=== PATIENT | female | born 1990 | race Caucasian/White ===

== ENCOUNTER → 2017-01-05 | Outpatient (CLI) | payer BC ==
[~2017-01-05] VITALS: Ht 172.7 cm; Wt 86.2 kg
[~2017-01-05] MED LIST: IOHEXOL 300 MG/ML 50 ML (OMNIPAQUE 300) VIAL IV ONE
[2017-01-05 12:00] VITALS: BP 121/79
[2017-01-05 13:00] VITALS: BP 118/68
--- NOTE | 2017-01-05 16:30 | Diagnostic Imaging Report ---
Exam: Hysterosalpingogram TECHNIQUE: Dr. Irving performed introduction of a catheter with a balloon into the uterine cavity. Contrast was injected into the uterine cavity with imaging over the pelvis performed with fluoroscopic visualization and images saved. INDICATION: Infertility. FLUOROSCOPY TIME: 28 seconds FINDINGS: There is normal contrast filling of the uterine cavity. The tubes are patent with free spillage into the peritoneal cavity bilaterally. IMPRESSION: Patent fallopian tubes. Dictated by: Dictated on workstation # [id number]
--- NOTE | 2017-01-05 17:53 | OPERATIVE REPORT ---
DATE OF SERVICE: 01/05/2017 PREPROCEDURE DIAGNOSIS: Dysmenorrhea. POSTPROCEDURE DIAGNOSIS: Dysmenorrhea. OPERATIVE PROCEDURE: Hystersalpingogram. OPERATIVE DESCRIPTION: With the patient in the radiology suite and a negative test performed prior to initiating the procedure, the patient was placed supine on the radiology table. Speculum was replaced in the vagina exposing the cervix. The cervix was swabbed with Betadine and then an HSG catheter was placed without difficulty. The balloon was filled with 1.5 mL of air. The patient tolerated this. The catheter had been flushed with radiopaque contrast medium. The patient was now placed supine and the radiologist was summoned. With the radiologist performing continuous fluoroscopy, the HSG was performed instilling the contrast media showing prompt and easy spill on the patient's right and a little bit delayed spill, but still pretty easy spill on the left. The balloon at this point was desufflated and the uterine cavity filled with contrast material as the balloon was withdrawn. There was a normal-appearing triangular endometrial cavity demonstrated. The patient tolerated the procedure well. She remained in the radiology suite for an additional 15 minutes observing for reaction to the contrast material. At that point with no adverse sequelae, the patient was discharged home with follow up in clinic. Job ID: [id number] DocumentID: [id number] Dictated Date: 01/05/2017 13:12:20 Senior Director [employer] Date: 01/05/2017 17:53:02 Dictated By: LESVIA GHOTRA MD
== END ==
LOC: RAD 11:31
PROVIDERS: ATTEND Obstetrics & Gynecology
DX: N97.1 Female infertility of tubal origin (principal)
CPT/HCPCS: 58340; 74740

== ENCOUNTER → 2017-12-16 | Outpatient (CLI) | payer BC | LOC: LABNPT 11:39 | PROVIDERS: ATTEND Obstetrics & Gynecology | DX: O14.03 Mild to moderate pre-eclampsia, third trimester (principal) | CPT/HCPCS: 82570; 84156 ==

== ENCOUNTER → 2017-12-30 | Outpatient (CLI) | payer BC ==
[~2017-12-30] MED LIST changes: +DOCU100C37 PO; +IBUP-1780 PO; -IOHEXOL 300 MG/ML 50 ML (OMNIPAQUE 300) VIAL IV ONE; +OXYC1TAB12 PO; +PREN-37 PO
== END ==
LOC: LABNPT 12:00
PROVIDERS: ATTEND Obstetrics & Gynecology
DX: O14.03 Mild to moderate pre-eclampsia, third trimester (principal)
CPT/HCPCS: 82570; 84156

== ENCOUNTER 2018-01-04 11:29 | Inpatient (IN) | payer BC ==
[2018-01-04] VITALS (44 sets, daily range): BP systolic 121–178; BP diastolic 59–106
[~2018-01-04] VITALS: Ht 167.6 cm; Wt 98.1 kg
--- OUTSIDE RECORDS SUMMARY | 2018-01-04 11:33 | XMS REPORT ---
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 328083538 ALLERGIES No Known Allergies ENCOUNTERS Encounter Location Date Diagnosis [facility] [address] [place], [place] [id number] [place] [id number] 15 Jan, 2017 URI with cough and congestion J06.9 [facility] [address] [place], [place] [id number] [place] [phone] 26 Oct, 2016 Encounter for immunization Z23 [facility] [address] [place] [id number] [place] [phone] 06 Oct, 2016 URI with cough and congestion J06.9 [facility] [address] [place] [id number] [place] [id number] 16 Sep, 2016 Visit for TB skin test Z11.1 [facility] [address] [place], [place] [id number] [place] [phone] 14 Sep, 2016 TB skin/subcutaneous A18.4 and Encounter for tuberculin skin test Z11.1 IMMUNIZATIONS No Known Immunizations SOCIAL HISTORY Never Assessed REASON FOR VISIT Cough and nasal drainage/headache/earache left ear x2 days-KMorgan, AUTOMATION OPERATOR PLAN OF CARE Activity Details Follow Up prn Reason: VITAL SIGNS Weight 208.9 lbs 2017-01-23 Temperature 98.0 degrees Fahrenheit 2017-01-23 Heart Rate 99 bpm 2017-01-23 Respiratory Rate 18 2017-01-23 Blood pressure systolic 118 mmHg 2017-01-23 Blood pressure diastolic 82 mmHg 2017-01-23 MEDICATIONS Medication Instructions Dosage Frequency Start Date End Date Duration Status Fluticasone Propionate 50 MCG/ACT Nasally Once a day 1 spray in each nostril 24h Oct, 30 day(s) Not-Taking PredniSONE 20 MG Orally Once a day Take 3 tablets on days 1-2, 2 tablets on days 3-4,1 tablet on day 5 24h Jan, Jan, 5 day(s) Active Levothyroxine Sodium 25 MCG Orally Once a day 1 tablet on an empty stomach in the morning 24h Active RESULTS No Results PROCEDURES No Known procedures INSTRUCTIONS MEDICATIONS ADMINISTERED No Known Medications MEDICAL (GENERAL) HISTORY Type Description Date Medical History Hypothroidism
--- OUTSIDE RECORDS SUMMARY | 2018-01-04 11:33 | XMS REPORT ---
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 [id number] ALLERGIES No Known Allergies ENCOUNTERS Encounter Location Date Diagnosis [facility] [address] [place], [place] [id number] [phone] 15 Jan, 2017 URI with cough and congestion J06.9 [facility] [address] [place], [place] [id number] [place] [phone] 26 Oct, 2016 Encounter for immunization Z23 [facility] [address] [place] [id number] [place] [phone] 06 Oct, 2016 URI with cough and congestion J06.9 [facility] [address] [place] [id number] [place] [phone] 16 Sep, 2016 Visit for TB skin test Z11.1 [facility] [address] [place] [id number] [place] [phone] 14 Sep, 2016 TB skin/subcutaneous A18.4 and Encounter for tuberculin skin test Z11.1 IMMUNIZATIONS No Known Immunizations SOCIAL HISTORY Never Assessed REASON FOR VISIT Sore throat since Thursday, deep chest cough and congestion/Denies fever./Joe Gilliam R.N. PLAN OF CARE Activity Details Follow Up prn Reason: VITAL SIGNS Temperature 99.0 degrees Fahrenheit 2016-10-15 Heart Rate 68 bpm 2016-10-15 Respiratory Rate 18 2016-10-15 Oximetry 98 % 2016-10-15 Blood pressure systolic 132 mmHg 2016-10-15 Blood pressure diastolic 84 mmHg 2016-10-15 MEDICATIONS Medication Instructions Dosage Frequency Start Date End Date Duration Status Fluticasone Propionate 50 MCG/ACT Nasally Once a day 1 spray in each nostril 24h Oct, 30 day(s) Active Levothyroxine Sodium 25 MCG Orally Once a day 1 tablet on an empty stomach in the morning 24h Active RESULTS No Results PROCEDURES Procedure Date Ordered Result Body Site MEASURE BLOOD OXYGEN LEVEL Oct 15, 2016 INSTRUCTIONS MEDICATIONS ADMINISTERED No Known Medications MEDICAL (GENERAL) HISTORY Type Description Date Medical History Hypothroidism
--- OUTSIDE RECORDS SUMMARY | 2018-01-04 11:34 | XMS REPORT ---
Author Nicole Yang [facility] Address [address] [place], [place] [id number] Care Team Providers Care Machining Manager Name Role Phone Nicole Ocampo PCP Unavailable Allergies and Adverse Reactions Name Reaction Notes NO KNOWN DRUG ALLERGIES Plan of Treatment Planned Activity Comments Planned Date Planned Time Plan/Goal TISSUE EXAM FOR FUNGI 08/07/2014 12:00 AM SMEAR WET MOUNT SALINE/INK 08/07/2014 12:00 AM Medications Active Name Start Date Estimated Completion Date SIG Comments omeprazole 40 mg oral capsule,delayed release(DR/EC) 09/21/2013 take 1 capsule daily lisinopril 10 mg oral tablet 09/07/2014 take 1 tablet (10 mg) by oral route once daily naproxen 500 mg oral tablet 09/11/2015 take 1 tablet (500 mg) by oral route 2 times per day with food omeprazole 20 mg oral capsule,delayed release(DR/EC) 09/11/2015 10/11/2015 take 1 capsule (20 mg) by oral route once daily before a meal for 30 days Name Start Date Expiration Date SIG Comments triamcinolone acetonide 0.1 % topical ointment 10/19/2013 10/31/2013 apply a thin layer to the affected area(s) by topical route 2 times per day for 14 days lidocaine 5 % topical ointment 10/19/2013 10/31/2013 apply to affected area by external route As needed for 14 days omeprazole 40 mg oral capsule,delayed release(DR/EC) 06/14/2014 09/12/2014 take 1 capsule by oral route 2 times a day for 30 days Contrave 8-90 mg oral tablet extended release 09/07/2014 10/07/2014 take 2 tablets by oral route 2 times per day in the morning and evening for 30 days prednisone 20 mg oral tablet 06/11/2015 06/17/2015 Take 3 tabs x 2 days; then Take 2 tabs x 2 days; then Take 1 tab x 2 days. Discontinued Name Start Date Discontinued Date SIG Comments TriNessa (28) 0.18/0.215/0.25 mg-35 mcg (28) oral tablet 03/02/2013 09/21/2013 TAKE 1 TABLET BY MOUTH DAILY Depo-Provera 150 mg/mL intramuscular syringe 06/13/2014 inject 1 milliliter (150 mg) by intramuscular route every 3 months Percocet 5-325 mg oral tablet 01/25/2014 02/13/2014 take 1 tablet by oral route every 4-6 hours as needed ibuprofen 800 mg oral tablet 01/25/2014 03/22/2014 take 1 tablet by oral route every 8 hours as needed for 30 days promethazine-codeine 6.25-10 mg/5 mL oral syrup 02/27/2014 03/22/2014 take 5 milliliters by oral route every 4-6 hours as needed, not to exceed 30 mL in 24 hours Sprintec (28) 0.25-35 mg-mcg oral tablet 03/22/2014 04/11/2015 take 1 tablet by oral route once daily for 28 days lisinopril 10 mg oral tablet 10/13/2014 04/11/2015 TAKE 1 TABLET BY MOUTH DAILY labetalol 100 mg oral tablet 04/11/2015 09/11/2015 take 1 tablet (100 mg) by oral route 2 times per day Problem List Description Status Onset NO KNOWN MEDICAL PROBLEMS Active Dyspareunia Active 10/17/2013 Hymen abnormality Active 10/17/2013 Vital Signs Date Time BP-Sys(mm[Hg] BP-Roberta(mm[Hg]) HR(bpm) RR(rpm) Temp WT HT HC BMI BSA BMI Percentile O2 Sat(%) 09/11/2015 11:50:00 AM 126 mmHg 72 mmHg 82 bpm 18 rpm 97.8 F 213.375 lbs 66 in 34.44 kg/m2 2.12 m2 99 % 06/11/2015 10:53:00 AM 140 mmHg 80 mmHg 78 bpm 16 rpm 96.5 F 212 lbs 66 in 34.2173 kg/m 2.1161 m 98 % 04/11/2015 9:30:00 AM 138 mmHg 72 mmHg 85 bpm 18 rpm 97.5 F 191.125 lbs 66 in 30.85 kg/m2 2.01 m2 98 % 09/07/2014 9:19:00 AM 149 mmHg 96 mmHg 79 bpm 18 rpm 98.6 F 205.25 lbs 66 in 33.1279 kg/m 2.0822 m 100 % 08/07/2014 3:19:00 PM 158 mmHg 90 mmHg 80 bpm 16 rpm 99.2 F 206.125 lbs 66 in 33.27 kg/m2 2.09 m2 99 % 06/13/2014 3:23:00 PM 124 mmHg 74 mmHg 90 bpm 18 rpm 98.3 F 204 lbs 66 in 32.9261 kg/m 2.0758 m 98 % 05/05/2014 3:54:00 PM 130 mmHg 80 mmHg 89 bpm 16 rpm 98 F 202.137 lbs 66 in 32.63 kg/m2 2.07 m2 98 % 03/22/2014 2:14:00 PM 157 mmHg 95 mmHg 101 bpm 98.1 F 199.5 lbs 68 in 30.3336 kg/m 2.0837 m 02/27/2014 2:45:00 PM 110 mmHg 68 mmHg 86 bpm 18 rpm 98.2 F 198 lbs 66 in 31.96 kg/m2 2.05 m2 99 % 02/13/2014 9:49:00 AM 146 mmHg 94 mmHg 96 bpm 98.4 F 01/25/2014 2:19:00 PM 156 mmHg 97 mmHg 81 bpm 97.8 F 198 lbs 66 in 31.96 kg/m2 2.05 m2 12/28/2013 3:54:00 PM 134 mmHg 82 mmHg 64 bpm 98 F 192 lbs 66 in 30.9893 kg/m 2.0138 m 10/17/2013 1:56:00 PM 156 mmHg 96 mmHg 83 bpm 98.4 F 187.25 lbs 66 in 30.22 kg/m2 1.99 m2 09/21/2013 8:51:00 AM 124 mmHg 66 mmHg 86 bpm 18 rpm 98.1 F 187.125 lbs 66 in 30.2025 kg/m 1.9881 m 99 % 03/02/2013 2:43:00 PM 124 mmHg 68 mmHg 88 bpm 18 rpm 96.9 F 192 lbs 66 in 30.99 kg/m2 2.01 m2 98 % 03/23/2012 10:41:00 AM 132 mmHg 77 mmHg 64 bpm 20 rpm 97.1 F 182 lbs 66 in 29.3753 kg/m 1.9607 m 100 % 02/13/2012 10:05:00 AM 146 mmHg 80 mmHg 77 bpm 16 rpm 97.1 F 179 lbs 99 % 02/12/2011 9:45:00 AM 130 mmHg 80 mmHg 100 bpm 16 rpm 97.4 F 174.125 lbs 99 % 01/31/2009 2:01:00 PM 128 mmHg 80 mmHg 80 bpm 16 rpm 98.6 F 144 lbs 66 in 23.24 kg/m2 1.74 m2 0 % Social History Name Description Comments Alcohol Current some day Tobacco Never smoker Single College attendee Denies illicit substance abuse Active but no formal exercise History of Procedures Date Ordered Description Order Status 04/11/2015 12:00 AM SPECIMEN HANDLING OFFICE-LAB Reviewed 04/11/2015 12:00 AM CYTOPATH C/V THIN LAYER Returned 04/11/2015 12:00 AM FUNGUS ISOLATION CULTURE Returned 02/12/2011 12:00 AM CYTOPATH C/V MANUAL Returned 02/13/2012 12:00 AM CYTOPATH C/V MANUAL Returned 03/02/2013 12:00 AM CYTOPATH C/V MANUAL Returned 03/02/2013 12:00 AM THER/PROPH/DIAG INJ SC/IM Reviewed 03/02/2013 12:00 AM Decadron, Per 1 Mg [facility]# [address]-97 Reviewed 03/02/2013 12:00 AM Depo-Medrol, Per 80 Mg [facility]#6311-6936-88 Reviewed 03/23/2013 12:00 AM THER/PROPH/DIAG INJ SC/IM Reviewed 03/23/2013 12:00 AM Depo-Provera 150 mg Reviewed 03/23/2013 12:00 AM URINE TEST Reviewed 06/08/2013 12:00 AM THER/PROPH/DIAG INJ SC/IM Reviewed 06/08/2013 12:00 AM Depo-Provera 150 mg Reviewed 01/31/2009 12:00 AM CHLAMYDIA CULTURE Reviewed 01/31/2009 12:00 AM SMEAR WET MOUNT SALINE/INK Reviewed 01/31/2009 12:00 AM N. GONORRHOEAE ASSAY W/OPTIC Reviewed 01/31/2009 12:00 AM URINALYSIS NONAUTO W/SCOPE Reviewed 08/24/2013 12:00 AM THER/PROPH/DIAG INJ SC/IM Reviewed 08/24/2013 12:00 AM Depo Provera Injection, 150 mg Reviewed 09/21/2013 9:19 AM URINALYSIS AUTO W/O SCOPE Reviewed 09/21/2013 12:00 AM URINE BACTERIA CULTURE Returned 11/09/2013 12:00 AM THER/PROPH/DIAG INJ SC/IM Reviewed 11/09/2013 12:00 AM Depo Provera Injection, 150 mg Reviewed 01/25/2014 12:00 AM COMPLETE CBC W/AUTO DIFF WBC Returned 01/25/2014 12:00 AM COMPREHEN METABOLIC PANEL Returned 01/25/2014 12:00 AM Type and screen Returned 01/25/2014 12:00 AM Depo Provera Injection, 150 mg Reviewed 02/27/2014 12:00 AM THER/PROPH/DIAG INJ SC/IM Reviewed 02/27/2014 12:00 AM Decadron, Per 1 Mg [facility]# [address]-19 Reviewed 02/27/2014 12:00 AM Depo-Medrol, Per 80 Mg [facility]#5955-9073-25 Reviewed 03/22/2014 12:00 AM SPECIMEN HANDLING OFFICE-LAB Reviewed 03/22/2014 12:00 AM CYTOPATH C/V THIN LAYER Returned 06/13/2014 4:18 PM URINALYSIS AUTO W/O SCOPE Reviewed 06/13/2014 4:18 PM URINE TEST Reviewed 06/13/2014 12:00 AM RADEX ABDOMEN COMPL W/DCBTS&/ERC VIEWS Returned 08/07/2014 3:55 PM URINALYSIS AUTO W/O SCOPE Reviewed Results Summary Data and Description Results 09/21/2013 9:19 AM Bilirub Ur Ql Strip neg Glucose Ur-sCnc neg Hgb Ur Ql Strip Small Ketones Ur Ql Strip neg Nitrite Ur Ql Strip neg pH Ur-LsCnc 6.5 Prot Ur Ql Strip neg Sp Gr Ur Qn 1.010 Urobilinogen Ur-mCnc 0.2E.U./dL WBC Est Ur Ql Strip Trace 01/30/2014 5:45 PM GLUCOSE 83.0 mg/dLSODIUM 143.0 mmol/LPOTASSIUM 3.50 mmol/ LCHLORIDE 109.0 mmol/LCO2 23.0 mmol/LBUN 6.0 mg/dLCREATININE 0.70 mg/dLSGOT/AST 13.0 IU/LSGPT/ALT 13.0 IU/LALK PHOS 67.0 IU/LTOTAL PROTEIN 7.90 g/dLALBUMIN 4.50 g/dLTOTAL BILI 0.30 mg/dLCALCIUM 9.60 mg/dLeGFR 60 WBC 9.0 RBC 4.74 HGB 13.70 g/dLHCT 41.40 %MCV 87.0 fLMCH 28.90 pgMCHC 33.10 g/dLRDW CV 13.10 %MPV 9.90 fLPLT 361 %NEUT 57.40 %%LYMP 34.20 %%MONO 6.10 %%EOS 2.0 %%BASO 0.30 %# NEUT 5.15 #LYMP 3.07 #MONO 0.55 #EOS 0.18 #BASO 0.03 02/07/2014 7:56 AM TEST UR NEGATIVE 06/13/2014 4:18 PM Bilirub Ur Ql Strip neg Glucose Ur-sCnc neg Hgb Ur Ql Strip small Ketones Ur Ql Strip neg Nitrite Ur Ql Strip neg pH Ur-LsCnc 7.0 Prot Ur Ql Strip neg Sp Gr Ur Qn 1.015 Urobilinogen Ur-mCnc 0.2 E.U./dL WBC Est Ur Ql Strip neg HCG Ur Ql neg 06/14/2014 12:26 PM Clarity Ur clear Color Ur yellow 08/07/2014 3:51 PM WET PREP NO TRICH SEEN CLUE CELLS NONE SEEN 08/07/2014 3:55 PM Bilirub Ur Ql Strip neg Clarity Ur clear Color Ur lt yellow Glucose Ur-sCnc neg Hgb Ur Ql Strip trace-lysed Ketones Ur Ql Strip neg Nitrite Ur Ql Strip neg pH Ur-LsCnc 8.0 Prot Ur Ql Strip neg Sp Gr Ur Qn 1.010 Urobilinogen Ur-mCnc 0.2 E.U./dL WBC Est Ur Ql Strip neg History Of Immunizations Name Date Admin Mf Name Mf Code Trade Name Lot# Route Inj Vis Given Vis Pub CVX Td 11/26/2010 Not Entered NE Not Entered Not Entered Not Entered 201502/09/2015 999 History of Past Illness Name Date of Onset Comments Vaginitis, Unknown Etiology Jan 31 2009 2:08PM NO KNOWN MEDICAL PROBLEMS Dyspareunia 10/17/2013 Hymen abnormality 10/17/2013 Routine gynecological examination Feb 12 2011 9:50AM Routine gynecological examination Feb 13 2012 10:08AM Pre-Employment Physical Mar 23 2012 10:45AM Routine gynecological examination Mar 02 2013 2:46PM Upper Respiratory Infections Mar 02 2013 2:46PM Contraceptive Counseling Mar 02 2013 2:46PM Contraceptive Management Mar 23 2013 4:29PM Contraception, Surveillance Jun 24 2013 4:45PM Contraception management Aug 24 2013 4:39PM Dysuria Sep 21 2013 8:53AM Abdominal Pain Sep 21 2013 8:53AM Diarrhea Sep 21 2013 8:53AM Dyspareunia Sep 21 2013 8:53AM Dyspareunia Oct 17 2013 1:58PM Vaginal discharge Oct 17 2013 1:58PM Hymen abnormality Oct 17 2013 1:58PM Contraception management Nov 09 2013 4:13PM Hymen abnormality Dec 28 2013 3:56PM Dyspareunia Jan 25 2014 2:21PM Hymen abnormality Jan 25 2014 2:21PM pre-operative examination, unspecified Jan 25 2014 2:21PM Contraceptive counseling (Depo-Provera) Jan 25 2014 3:28PM Postoperative Examination Following Surgery Feb 13 2014 11:25AM Upper Respiratory Infections Feb 27 2014 2:48PM Routine gynecological examination Mar 22 2014 2:19PM Rhinitis, Allergic May 05 2014 3:57PM Abdominal Pain Jun 13 2014 3:25PM Hematuria Jun 13 2014 3:25PM Abdominal Pain Aug 07 2014 3:21PM Vaginal discharge Aug 07 2014 3:21PM Hypertension Sep 07 2014 9:22AM BMI 33.0-33.9,adult Sep 07 2014 9:22AM Routine gynecological examination Apr 11 2015 9:32AM Other allergic rhinitis Jun 11 2015 10:54AM Sinus congestion Jun 11 2015 10:54AM GERD without esophagitis Sep 11 2015 11:52AM Costochondritis Sep 11 2015 11:52AM Payers Insurance Name Company Name Plan Name Plan Number Policy Number Policy Group Number Start Date [facility] [id number] Friday, 2015 [facility] [id number] February [facility] Med Occupational Medicine [id number] N/A [employer]BS [employer] [facility] [id number] N/A [employer]ppa Wppa [id number] N/A Wppa Wppa INVALID [id number] N/A Benefit [employer] [id number] Tuesday, January 10, 2012 History of Encounters Visit Date Visit Type Provider 09/11/2015 Office visit Nicole Ocampo HEAT TRANSFER TECHNICIAN 06/11/2015 Office visit Jerson Hinojosa HEAT TRANSFER TECHNICIAN 04/11/2015 Office visit Nicole Ocampo HEAT TRANSFER TECHNICIAN 09/07/2014 Office visit Nicole Ocampo HEAT TRANSFER TECHNICIAN 08/07/2014 Office visit Nicole Ocampo HEAT TRANSFER TECHNICIAN 06/13/2014 Office visit Nicole Ocampo HEAT TRANSFER TECHNICIAN 05/05/2014 Office visit Nara Hdez HEAT TRANSFER TECHNICIAN 03/22/2014 Office visit Valeria Mohamud MD 02/27/2014 Office visit 02/27/2014 Office visit Nicole Ocampo HEAT TRANSFER TECHNICIAN 02/13/2014 Office visit Valeria Mohamud MD 02/07/2014 Hospital Valeria Mohamud MD 01/25/2014 Nurse visit Kiley De Santiago CMA 01/25/2014 Surgery Valeria Mohamud MD 12/28/2013 Office visit Valeria Mohamud MD 11/09/2013 Nurse visit Nicole Ocampo HEAT TRANSFER TECHNICIAN 10/17/2013 Office visit Valeria Mohamud MD 09/21/2013 Office visit Nicole Ocampo HEAT TRANSFER TECHNICIAN 08/24/2013 Nurse visit Nicole Ocampo HEAT TRANSFER TECHNICIAN 06/08/2013 Nurse visit Nicole Ocampo HEAT TRANSFER TECHNICIAN 03/23/2013 Nurse visit Nicole Ocampo HEAT TRANSFER TECHNICIAN 03/02/2013 Office visit Nicole Ocampo HEAT TRANSFER TECHNICIAN 03/23/2012 Office visit Nara Hdez HEAT TRANSFER TECHNICIAN 02/13/2012 Office visit Sirisha Franco MD 02/12/2011 Office visit Sirisha Franco MD 01/31/2009 Office visit Sirisha Franco MD
--- OUTSIDE RECORDS SUMMARY | 2018-01-04 11:35 | XMS REPORT ---
Author Author Nicole Ocampo [facility] Address [address] [facility] [address] [place], [place] [id number] Care Team Providers Care Veneer Jointer Helper Name Role Phone Nicole Ocampo PCP Unavailable Nicole Ocampo PreferredProvider Unavailable Allergies and Adverse Reactions Name Reaction Notes NO KNOWN DRUG ALLERGIES Plan of Treatment Planned Activity Comments Planned Date Planned Time Plan/Goal Pap smear 09/25/2016 12:00 AM Medications Active Name Start Date Estimated Completion Date SIG Comments omeprazole 40 mg oral capsule,delayed release(DR/EC) 09/21/2013 take 1 capsule daily lisinopril 10 mg oral tablet 09/07/2014 take 1 tablet (10 mg) by oral route once daily levothyroxine oral Name Start Date Expiration Date SIG Comments [...] then Take 1 tab x 2 days. naproxen 500 mg oral tablet 09/11/2015 take 1 tablet (500 mg) by oral route 2 times per day with food omeprazole 20 mg oral capsule,delayed release(DR/EC) 09/11/2015 10/11/2015 take 1 capsule (20 mg) by oral route once daily before a meal for 30 days Discontinued Name Start Date Discontinued Date SIG [...] HC BMI BSA BMI Percentile O2 Sat(%) 09/25/2016 9:59:00 AM 114 mmHg 70 mmHg 63 bpm 18 rpm 97 F 214 lbs 66 in 34.54 kg/m2 2.13 m2 99 % 09/11/2015 11:50:00 AM 126 mmHg 72 mmHg 82 bpm 18 rpm 97.8 F 213.375 lbs 66 in 34.4393 kg/m 2.123 m 99 % 06/11/2015 10:53:00 AM 140 mmHg 80 mmHg 78 bpm 16 rpm 96.5 F 212 lbs 66 in 34.22 kg/m2 2.12 m2 98 % 04/11/2015 9:30:00 AM 138 mmHg 72 mmHg 85 bpm 18 rpm 97.5 F 191.125 lbs 66 in 30.8481 kg/m 2.0092 m 98 % 09/07/2014 9:19:00 AM 149 mmHg 96 mmHg 79 bpm 18 rpm 98.6 F 205.25 lbs 66 in 33.13 kg/m2 2.08 m2 100 % 08/07/2014 3:19:00 PM 158 mmHg 90 mmHg 80 bpm 16 rpm 99.2 F 206.125 lbs 66 in 33.2691 kg/m 2.0866 m 99 % 06/13/2014 3:23:00 PM 124 mmHg 74 mmHg 90 bpm 18 rpm 98.3 F 204 lbs 66 in 32.93 kg/m2 2.08 m2 98 % 05/05/2014 3:54:00 PM 130 mmHg 80 mmHg 89 bpm 16 rpm 98 F 202.137 lbs 66 in 32.6255 kg/m 2.0663 m 98 % 03/22/2014 2:14:00 PM 157 mmHg 95 mmHg 101 bpm 98.1 F 199.5 lbs 68 in 30.33 kg/m2 2.08 m2 02/27/2014 2:45:00 PM 110 mmHg 68 mmHg 86 bpm 18 rpm 98.2 F 198 lbs 66 in 31.9577 kg/m 2.0451 m 99 % 02/13/2014 9:49:00 AM 146 mmHg 94 mmHg 96 bpm 98.4 F 01/25/2014 2:19:00 PM 156 mmHg 97 mmHg 81 bpm 97.8 F 198 lbs 66 in 31.9577 kg/m 2.0451 m 12/28/2013 3:54:00 PM 134 mmHg 82 mmHg 64 bpm 98 F 192 lbs 66 in 30.99 kg/m2 2.01 m2 10/17/2013 1:56:00 PM 156 mmHg 96 mmHg 83 bpm 98.4 F 187.25 lbs 66 in 30.2226 kg/m 1.9888 m 09/21/2013 8:51:00 AM 124 mmHg 66 mmHg 86 bpm 18 rpm 98.1 F 187.125 lbs 66 in 30.20 kg/m2 1.99 m2 99 % 03/02/2013 2:43:00 PM 124 mmHg 68 mmHg 88 bpm 18 rpm 96.9 F 192 lbs 66 in 30.9893 kg/m 2.0138 m 98 % 03/23/2012 10:41:00 AM 132 mmHg 77 mmHg 64 bpm 20 rpm 97.1 F 182 lbs 66 in 29.38 kg/m2 1.96 m2 100 % 02/13/2012 10:05:00 AM 146 mmHg 80 mmHg 77 bpm 16 rpm 97.1 F 179 lbs 99 % 02/12/2011 9:45:00 AM 130 mmHg 80 mmHg 100 bpm 16 rpm 97.4 F 174.125 lbs 99 % 01/31/2009 2:01:00 PM 128 mmHg 80 mmHg 80 bpm 16 rpm 98.6 F 144 lbs 66 in 23.242 kg/m 1.744 m 0 % Social History Name Description Comments Alcohol Current some day Tobacco Never smoker Single College attendee Denies illicit substance abuse Active but no formal exercise History of Procedures Date Ordered Description Order Status 04/11/2015 12:00 AM SPECIMEN HANDLING OFFICE-LAB Reviewed 04/11/2015 12:00 AM CYTOPATH C/V THIN LAYER Reviewed 04/11/2015 12:00 AM FUNGUS ISOLATION CULTURE Reviewed 02/12/2011 12:00 AM CYTOPATH C/V MANUAL Reviewed 09/25/2016 12:00 AM SPECIMEN HANDLING OFFICE-LAB Reviewed 02/13/2012 12:00 AM CYTOPATH C/V MANUAL Reviewed 03/02/2013 12:00 AM CYTOPATH C/V MANUAL Reviewed 03/02/2013 12:00 AM THER/PROPH/DIAG INJ SC/IM Reviewed 03/02/2013 12:00 AM Decadron, Per 1 Mg [facility]# [id number] Reviewed 03/02/2013 12:00 AM Depo-Medrol, Per 80 Mg [facility]#[id number] Reviewed 03/23/2013 12:00 AM THER/PROPH/DIAG INJ SC/IM [...] Reviewed 09/21/2013 12:00 AM URINE BACTERIA CULTURE Reviewed 11/09/2013 12:00 AM THER/PROPH/DIAG INJ SC/IM Reviewed 11/09/2013 12:00 AM Depo Provera Injection, 150 mg Reviewed 01/25/2014 12:00 AM COMPLETE CBC W/AUTO DIFF WBC Reviewed 01/25/2014 12:00 AM COMPREHEN METABOLIC PANEL Reviewed 01/25/2014 12:00 AM Type and screen Reviewed 01/25/2014 12:00 AM Depo Provera Injection, 150 mg Reviewed 02/27/2014 12:00 AM THER/PROPH/DIAG INJ SC/IM Reviewed 02/27/2014 12:00 AM Decadron, Per 1 Mg [facility]# [id number] Reviewed 02/27/2014 12:00 AM Depo-Medrol, Per 80 Mg [facility]#[id number] Reviewed 03/22/2014 12:00 AM SPECIMEN HANDLING OFFICE-LAB Reviewed 03/22/2014 12:00 AM CYTOPATH C/V THIN LAYER Reviewed 06/13/2014 4:18 PM URINALYSIS AUTO W/O SCOPE Reviewed 06/13/2014 4:18 PM URINE TEST Reviewed 06/13/2014 12:00 AM RADEX ABDOMEN COMPL W/DCBTS&/ERC VIEWS Reviewed 08/07/2014 3:55 PM URINALYSIS AUTO W/O SCOPE Reviewed 08/07/2014 12:00 AM TISSUE EXAM FOR FUNGI Reviewed 08/07/2014 12:00 AM SMEAR WET MOUNT SALINE/INK Reviewed Results Summary Date and Description Results 09/21/2013 9:19 AM Bilirub [...] g/dLALBUMIN 4.50 g/dLTOTAL BILI 0.30 mg/dLCALCIUM 9.60 mg/dLAGE 23 GFR NonAA 102 GFR AA 124 eGFR 60 eGFR AA* 60 WBC 9.0 RBC 4.74 HGB 13.70 g/dLHCT 41.40 %MCV 87.0 fLMCH 28.90 pgMCHC 33.10 g/dLRDW SD 42 RDW CV 13.10 %MPV 9.90 fLPLT 361 NRBC# 0.00 NRBC% 0.0 %NEUT 57.40 %%LYMP 34.20 %%MONO 6.10 %%EOS 2.0 %%BASO 0.30 %#NEUT 5.15 #LYMP 3.07 #MONO 0.55 #EOS 0.18 #BASO 0.03 MANUAL DIFF NOT IND 02/07/2014 7:56 AM TEST UR NEGATIVE 06/13/2014 [...] neg History Of Immunizations Name Date Admin Mfg Name Mfg Code Trade Name Lot# Route Inj Vis Given Vis Pub CVX Td 11/26/2010 Not Entered NE Not Entered Not Entered Not Entered 201602/10/2016 999 History of Past Illness Name Date [...] 2015 11:52AM Costochondritis Sep 11 2015 11:52AM Routine gynecological examination Sep 25 2016 10:01AM Payers Insurance Name Company Name Plan Name Plan Number Policy Number Policy Group Number Start Date BC[facility] [id number] Friday, 2015 [facility] [id number] February [facility] Occupational Medicine [id number] N/A BCBS [facility] [id number] N/A [employer] [id number] N/A Wppa Wppa INVALID [id number] N/A Benefit Management Benefit Management [facility] [id number] Tuesday, January 10, 2012 History of Encounters Visit Date Visit Type Provider 09/25/2016 Office visit Nicole Ocampo STERILE PROCESSING TECHNICIAN 09/11/2015 Office visit Nicole Ocampo STERILE PROCESSING TECHNICIAN 06/11/2015 Office visit Jerson Hinojosa STERILE PROCESSING TECHNICIAN 04/11/2015 Office visit Nicole Ocampo STERILE PROCESSING TECHNICIAN 09/07/2014 Office visit Nicole Ocampo STERILE PROCESSING TECHNICIAN 08/07/2014 Office visit Nicole Ocampo STERILE PROCESSING TECHNICIAN 06/13/2014 Office visit Nicole Ocampo STERILE PROCESSING TECHNICIAN 05/05/2014 Office visit Nara Hdez STERILE PROCESSING TECHNICIAN 03/22/2014 Office visit Valeria Mohamud MD 02/27/2014 Office visit 02/27/2014 Office visit Nicole Ocampo STERILE PROCESSING TECHNICIAN 02/13/2014 Office visit Valeria Mohamud MD 02/07/2014 Hospital Valeria Mohamud MD 01/25/2014 Nurse visit Kiley De Santiago CMA 01/25/2014 Surgery Valeria Mohamud MD 12/28/2013 Office visit Valeria Mohamud MD 11/09/2013 Nurse visit Nicole Ocampo STERILE PROCESSING TECHNICIAN 10/17/2013 Office visit Valeria Mohamud MD 09/21/2013 Office visit Nicole Ocampo STERILE PROCESSING TECHNICIAN 08/24/2013 Nurse visit Nicole Ocampo STERILE PROCESSING TECHNICIAN 06/08/2013 Nurse visit Nicole Ocampo STERILE PROCESSING TECHNICIAN 03/23/2013 Nurse visit Nicole Ocampo STERILE PROCESSING TECHNICIAN 03/02/2013 Office visit Nicole Ocampo STERILE PROCESSING TECHNICIAN 03/23/2012 Office visit Nara Hdez STERILE PROCESSING TECHNICIAN 02/13/2012 Office visit Sirisha Franco MD 02/12/2011 Office visit Sirisha Franco MD 01/31/2009 Office visit Sirisha Franco MD
--- OUTSIDE RECORDS SUMMARY | 2018-01-04 11:35 | XMS REPORT ---
Author Author Jerson Hinojosa [facility] Address [address] [place], [place] [address] Care Team Providers Care Mri Assistant Name Role Phone Jerson Hinojosa PCP Allergies and Adverse Reactions Name Reaction Notes [...] (10 mg) by oral route once daily labetalol 100 mg oral tablet 04/11/2015 take 1 tablet (100 mg) by oral route 2 times per day prednisone 20 mg oral tablet 06/11/2015 06/17/2015 Take 3 tabs x 2 days; then Take 2 tabs x 2 days; then Take 1 tab x 2 days. Name Start Date Expiration Date SIG Comments [...] the morning and evening for 30 days Discontinued Name Start Date [...] 04/11/2015 TAKE 1 TABLET BY MOUTH DAILY Problem List Description Status Onset NO KNOWN MEDICAL PROBLEMS Active Dyspareunia Active 10/17/2013 Hymen abnormality Active 10/17/2013 Vital Signs Date Time BP-Sys(mm[Hg] BP-Roberta(mm[Hg]) HR(bpm) RR(rpm) Temp WT HT HC BMI BSA BMI Percentile O2 Sat(%) 06/11/2015 10:53:00 AM 140 mmHg 80 mmHg [...] 03/02/2013 12:00 AM Decadron, Per 1 Mg [facility]# [address]-25 Reviewed 03/02/2013 12:00 AM Depo-Medrol, Per 80 Mg [facility]#3749-3270-27 Reviewed 03/23/2013 12:00 AM THER/PROPH/DIAG INJ SC/IM [...] 02/27/2014 12:00 AM Decadron, Per 1 Mg [facility]# [address]-56 Reviewed 02/27/2014 12:00 AM Depo-Medrol, Per 80 Mg [facility]#1545-2092-59 Reviewed 03/22/2014 12:00 AM SPECIMEN HANDLING OFFICE-LAB [...] 10:54AM Sinus congestion Jun 11 2015 10:54AM Payers Insurance Name Company Name Plan Name Plan Number Policy Number Policy Group Number Start Date BCBS [employer] [place] [id number] Friday, 2015 [facility] [id number] February [facility] Occupational Medicine [id number] N/A BCBS [employer] [place] [id number] N/A [employer]ppa Wppa [id number] N/A Wppa Wppa INVALID [id number] N/A Benefit Management Benefit Management [facility] [id number] Tuesday, January 10, 2012 History of Encounters Visit Date Visit Type Provider 06/11/2015 Office visit Jerson Hinojosa APRN 04/11/2015 Office visit Nicole Ocampo APRN 09/07/2014 Office visit Nicole Ocampo LIVESTOCK HAULIER 08/07/2014 Office visit Nicole Ocampo APRN 06/13/2014 Office visit Nicole Ocampo APRN 05/05/2014 Office visit Nara Hdez LIVESTOCK HAULIER 03/22/2014 Office visit Valeria Mohamud MD 02/27/2014 Office visit 02/27/2014 Office visit Nicole Ocampo APRN 02/13/2014 Office visit Valeria Mohamud MD 02/07/2014 Hospital Valeria Mohamud MD 01/25/2014 Nurse visit Kiley De Santiago CMA 01/25/2014 Surgery Valeria Mohamud MD 12/28/2013 Office visit Valeria Mohamud MD 11/09/2013 Nurse visit Nicole Ocampo LIVESTOCK HAULIER 10/17/2013 Office visit Valeria Mohamud MD 09/21/2013 Office visit Nicole Terrence LIVESTOCK HAULIER 08/24/2013 Nurse visit Nicole Terrence LIVESTOCK HAULIER 06/08/2013 Nurse visit Nicole Terrence LIVESTOCK HAULIER 03/23/2013 Nurse visit Nicole Terrence LIVESTOCK HAULIER 03/02/2013 Office visit Nicole Terrence LIVESTOCK HAULIER 03/23/2012 Office visit Nara Hdez LIVESTOCK HAULIER 02/13/2012 Office visit Sirisha Franco MD 02/12/2011 Office visit Sirisha Franco MD 01/31/2009 Office visit Sirisha Franco MD
--- OUTSIDE RECORDS SUMMARY | 2018-01-04 11:36 | XMS REPORT ---
Author Author Sirisha Franco [facility] Address [address] [place], [place] [address] Care Team Providers Care Batch Plant Supervisor Name Role Phone Sirisha Franco PCP Unavailable Allergies and Adverse Reactions Name Reaction Notes NO KNOWN DRUG ALLERGIES Plan of Treatment Not available. Medications Active Name Start Date Estimated Completion Date SIG Comments omeprazole oral capsule,delayed release(DR/EC) 40 mg 09/21/2013 take 1 capsule daily Sprintec (28) Oral Tablet 0.25-35 mg-mcg 03/22/2014 take 1 tablet by oral route once daily for 28 days omeprazole oral capsule,delayed release(DR/EC) 40 mg 06/14/2014 09/12/2014 take 1 capsule by oral route 2 times a day for 30 days Name Start Date Expiration Date SIG Comments triamcinolone acetonide topical ointment 0.1 % 10/19/2013 10/31/2013 apply a thin layer to the affected area(s) by topical route 2 times per day for 14 days lidocaine topical ointment 5 % 10/19/2013 10/31/2013 apply to affected area by external route As needed for 14 days Discontinued Name Start Date Discontinued Date SIG Comments TriNessa (28) oral tablet 0.18/0.215/0.25 mg-35 mcg (28) 03/02/2013 09/21/2013 TAKE 1 TABLET BY MOUTH DAILY Depo-Provera intramuscular syringe 150 mg/mL 06/13/2014 inject 1 milliliter (150 mg) by intramuscular route every 3 months Percocet Oral Tablet 5-325 mg 01/25/2014 02/13/2014 take 1 tablet by oral route every 4-6 hours as needed ibuprofen Oral Tablet 800 mg 01/25/2014 03/22/2014 take 1 tablet by oral route every 8 hours as needed for 30 days promethazine-codeine oral syrup 6.25-10 mg/5 mL 02/27/2014 03/22/2014 take 5 milliliters by oral route every 4-6 hours as needed, not to exceed 30 mL in 24 hours Problem List Description Status Onset NO KNOWN MEDICAL PROBLEMS Active Dyspareunia Active 10/17/2013 Hymen abnormality Active 10/17/2013 Vital Signs Date Time BP-Sys(mm[Hg] BP-Roberta(mm[Hg]) HR(bpm) RR(rpm) Temp WT HT HC BMI BSA BMI Percentile O2 Sat(%) 06/13/2014 3:23:00 PM 124 mmHg 74 mmHg [...] % Social History Name Description Comments Alcohol Tobacco Never smoker Single College attendee Denies illicit substance abuse Active but no formal exercise History of Procedures Date Ordered Description Order Status 02/12/2011 12:00 AM CYTOPATH C/V MANUAL Returned 02/13/2012 12:00 AM CYTOPATH C/V MANUAL Returned 03/02/2013 12:00 AM CYTOPATH C/V MANUAL Returned 03/02/2013 12:00 AM THER/PROPH/DIAG INJ SC/IM Reviewed 03/23/2013 12:00 AM THER/PROPH/DIAG INJ SC/IM Reviewed 03/23/2013 12:00 AM URINE TEST Reviewed 06/08/2013 12:00 AM THER/PROPH/DIAG INJ SC/IM Reviewed 01/31/2009 12:00 AM CHLAMYDIA CULTURE Reviewed 01/31/2009 12:00 AM SMEAR WET MOUNT SALINE/INK Reviewed 01/31/2009 12:00 AM N. GONORRHOEAE ASSAY W/OPTIC Reviewed 01/31/2009 12:00 AM URINALYSIS NONAUTO W/SCOPE Reviewed 08/24/2013 12:00 AM THER/PROPH/DIAG INJ SC/IM Reviewed 09/21/2013 9:19 AM URINALYSIS AUTO W/O SCOPE Reviewed 09/21/2013 12:00 AM URINE BACTERIA CULTURE Returned 11/09/2013 12:00 AM THER/PROPH/DIAG INJ SC/IM Reviewed 01/25/2014 12:00 AM COMPLETE CBC W/AUTO DIFF WBC Returned 01/25/2014 12:00 AM COMPREHEN METABOLIC PANEL Returned 01/25/2014 12:00 AM Type and screen Returned 02/27/2014 12:00 AM THER/PROPH/DIAG INJ SC/IM Reviewed 03/22/2014 12:00 AM SPECIMEN HANDLING OFFICE-LAB Reviewed 03/22/2014 12:00 AM CYTOPATH C/V THIN LAYER Returned 06/13/2014 4:18 PM URINALYSIS AUTO W/O SCOPE Reviewed 06/13/2014 4:18 PM URINE TEST Reviewed Results Summary Data and Description Results [...] PM Clarity Ur clear Color Ur yellow History Of Immunizations Name Date Admin g Name Mf Code Trade Name Lot# Route Inj Vis Given Vis Pub CVX Td 11/26/2010 Not Entered NE Not Entered Not Entered Not Entered 201402/09/2014 999 History of Past Illness Name Date [...] 2014 3:25PM Hematuria Jun 13 2014 3:25PM Payers Insurance Name Company Name Plan Name Plan Number Policy Number Policy Group Number Start Date [facility] [id number] N/A Benefit Management [employer] [id number] Tuesday, 2012 Wppa Wppa [id number] N/A Wppa Wppa INVALID [id number] N/A [place] [facility] [id number] February [facility] Occupational Medicine [id number] N/A History of Encounters Visit Date Visit Type Provider 06/13/2014 Office visit Nicole Ocampo LINK MACHINE OPERATOR 05/05/2014 Office visit Nara Hdez LINK MACHINE OPERATOR 03/22/2014 Office visit Valeria Mohamud MD 02/27/2014 Office visit Nicole Ocampo LINK MACHINE OPERATOR 02/13/2014 Office visit Valeria Mohamud MD 02/07/2014 Hospital Valeria Mohamud MD 01/25/2014 Surgery Valeria Mohamud MD 01/25/2014 Nurse visit Kiley Jonnathan HERNANDEZ 12/28/2013 Office visit Valeria Mohamud MD 11/09/2013 Nurse visit Nicole Ocampo LINK MACHINE OPERATOR 10/17/2013 Office visit Valeria Mohamud MD 09/21/2013 Office visit Nicole Ocampo LINK MACHINE OPERATOR 08/24/2013 Nurse visit Nicole Ocampo LINK MACHINE OPERATOR 06/08/2013 Nurse visit Nicole Ocampo LINK MACHINE OPERATOR 03/23/2013 Nurse visit Nicole Ocampo LINK MACHINE OPERATOR 03/02/2013 Office visit Nicole Ocampo LINK MACHINE OPERATOR 03/23/2012 Office visit Nara Hdez LINK MACHINE OPERATOR 02/13/2012 Office visit Sirisha Franco MD 02/12/2011 Office visit Sirisha Franco MD 01/31/2009 Office visit Sirisha Franco MD
--- OUTSIDE RECORDS SUMMARY | 2018-01-04 11:36 | XMS REPORT ---
Author Author Nicole Ocampo Organization [facility] Address [address] [place], [place] [address] Care Team Providers Care Screen Examiner Name Role Phone Nicole Ocampo PCP Unavailable Allergies and Adverse Reactions Name Reaction Notes NO KNOWN DRUG ALLERGIES Plan of Treatment Planned Activity Comments Planned Date Planned Time Plan/Goal CYTOPATH C/V THIN LAYER 04/11/2015 12:00 AM FUNGUS ISOLATION CULTURE 04/11/2015 12:00 AM TISSUE EXAM FOR FUNGI 08/07/2014 12:00 AM [...] by oral route 2 times per day Name Start Date Expiration Date SIG Comments [...] HC BMI BSA BMI Percentile O2 Sat(%) 04/11/2015 9:30:00 AM 138 mmHg 72 mmHg [...] F 192 lbs 66 in 30.9893 kg/m 2.01 m2 98 % 03/23/2012 10:41:00 AM 132 mmHg 77 mmHg 64 bpm 20 rpm 97.1 F 182 lbs 66 in 29.38 kg/m2 1.9607 m 100 % 02/13/2012 10:05:00 AM 146 mmHg 80 mmHg 77 bpm 16 rpm 97.1 F 179 lbs 99 % 02/12/2011 9:45:00 AM 130 mmHg 80 mmHg 100 bpm 16 rpm 97.4 F 174.125 lbs 99 % 01/31/2009 2:01:00 PM 128 mmHg 80 mmHg 80 bpm 16 rpm 98.6 F 144 lbs 66 in 23.242 kg/m 1.74 m2 0 % Social History Name Description Comments Alcohol Current some day Tobacco Never smoker Single College attendee Denies illicit substance abuse Active but no formal exercise History of Procedures Date Ordered Description Order Status 04/11/2015 12:00 AM SPECIMEN HANDLING OFFICE-LAB Reviewed 02/12/2011 12:00 AM CYTOPATH C/V MANUAL Returned 02/13/2012 12:00 AM CYTOPATH C/V MANUAL Returned 03/02/2013 12:00 AM CYTOPATH C/V MANUAL Returned 03/02/2013 12:00 AM THER/PROPH/DIAG INJ SC/IM Reviewed 03/02/2013 12:00 AM Decadron, Per 1 Mg [facility]# [address]-04 Reviewed 03/02/2013 12:00 AM Depo-Medrol, Per 80 Mg [facility]#8531-6315-55 Reviewed 03/23/2013 12:00 AM THER/PROPH/DIAG INJ SC/IM [...] 02/27/2014 12:00 AM Decadron, Per 1 Mg [facility]# [address]-51 Reviewed 02/27/2014 12:00 AM Depo-Medrol, Per 80 Mg [facility]#8203-2915-54 Reviewed 03/22/2014 12:00 AM SPECIMEN HANDLING OFFICE-LAB [...] Routine gynecological examination Apr 11 2015 9:32AM Payers Insurance Name Company Name Plan Name Plan Number Policy Number Policy Group Number Start Date [employer]BS [employer] [place] [id number] Friday, 2015 [facility] [id number] February [facility] Occupational Medicine [id number] N/A BCBS [employer] [place] [id number] N/A Wppa Wppa [id number] N/A Wppa Wppa INVALID [id number] N/A Benefit Management [employer] [id number] Tuesday, January 10, 2012 History of Encounters Visit Date Visit Type Provider 04/11/2015 Office visit Nicole Ocampo APRN 09/07/2014 Office visit Nicole Ocampo UPFITTER 08/07/2014 Office visit Nicole Ocampo UPFITTER 06/13/2014 Office visit Nicole Ocampo UPFITTER 05/05/2014 Office visit Nara Hdez UPFITTER 03/22/2014 Office visit Valeria Mohamud MD 02/27/2014 Office visit 02/27/2014 Office visit Nicole Ocampo APRN 02/13/2014 Office visit Valeria Mohamud MD 02/07/2014 Hospital Valeria Mohamud MD 01/25/2014 Nurse visit Kiley De Santiago CMA 01/25/2014 Surgery Valeria Mohamud MD 12/28/2013 Office visit Valeria Mohamud MD 11/09/2013 Nurse visit Nicole Ocampo UPFITTER 10/17/2013 Office visit Valeria Mohamud MD 09/21/2013 Office visit Nicole Ocampo APRN 08/24/2013 Nurse visit Nicole Ocampo APRN 06/08/2013 Nurse visit Nicole Ocampo APRN 03/23/2013 Nurse visit Nicole Ocampo APRN 03/02/2013 Office visit Nicole Ocampo UPFITTER 03/23/2012 Office visit Nara Hdez APRN 02/13/2012 Office visit Sirisah Franco MD 02/12/2011 Office visit Sirisha Franco MD 01/31/2009 Office visit Sirisha Franco MD
--- OUTSIDE RECORDS SUMMARY | 2018-01-04 11:37 | XMS REPORT ---
Author Author Sirisha Franco [facility] Address [address] [place], [place] [address] Care Team Providers Care Neurophysiology Tech Name Role Phone Sirisha Franco PCP Unavailable Allergies and Adverse Reactions Name Reaction Notes NO KNOWN DRUG ALLERGIES Plan of Treatment Not available. Medications Active Name Start Date Estimated Completion Date SIG Comments omeprazole oral capsule,delayed release(DR/EC) 40 mg 09/21/2013 take 1 capsule daily omeprazole oral capsule,delayed release(DR/EC) 40 mg 03/08/2014 TAKE 1 CAPSULE DAILY Sprintec (28) Oral Tablet 0.25-35 mg-mcg 03/22/2014 take 1 tablet by oral route once daily for 28 days Name Start Date Expiration Date SIG [...] Ql Strip neg HCG Ur Ql neg History Of Immunizations Name Date Admin [...] Policy Number Policy Group Number [id number] N/A Benefit Management [employer] [id number] Tuesday, 2012 [employer] Wppa [id number] N/A Wppa Wppa INVALID [id number] N/A [facility] [id number] February [facility] Occupational Medicine [id number] N/A History of Encounters Visit Date Visit Type Provider 06/13/2014 Office visit Nicole Ocampo AURICULAR DETOXIFICATION SPECIALIST 05/05/2014 Office visit Nara Hdez AURICULAR DETOXIFICATION SPECIALIST 03/22/2014 Office visit Valeria Mohamud MD 02/27/2014 Office visit Nicole Ocampo AURICULAR DETOXIFICATION SPECIALIST 02/13/2014 Office visit Valeria Mohamud MD 02/07/2014 Hospital Valeria Mohamud MD 01/25/2014 Surgery Valeria Mohamud MD 01/25/2014 Nurse visit Kiley Jonnathan HERNANDEZ 12/28/2013 Office visit Valeria Mohamud MD 11/09/2013 Nurse visit Nicole Ocampo AURICULAR DETOXIFICATION SPECIALIST 10/17/2013 Office visit Valeria Mohamud MD 09/21/2013 Office visit Nicole Ocampo AURICULAR DETOXIFICATION SPECIALIST 08/24/2013 Nurse visit Nicole Ocampo AURICULAR DETOXIFICATION SPECIALIST 06/08/2013 Nurse visit Nicole Ocampo AURICULAR DETOXIFICATION SPECIALIST 03/23/2013 Nurse visit Nicole Ocampo AURICULAR DETOXIFICATION SPECIALIST 03/02/2013 Office visit Nicole Ocampo AURICULAR DETOXIFICATION SPECIALIST 03/23/2012 Office visit Nara Hdez AURICULAR DETOXIFICATION SPECIALIST 02/13/2012 Office visit Sirisha Franco MD 02/12/2011 Office visit Sirisha Franco MD 01/31/2009 Office visit Sirisha Franco MD
--- OUTSIDE RECORDS SUMMARY | 2018-01-04 11:37 | XMS REPORT ---
Author Nicole Yang Organization [facility] Address [address] [place], [place] [id number] Care Team Providers Care Meeting Planner Name Role Phone Nicole Ocampo PCP Unavailable [...] HC BMI BSA BMI Percentile O2 Sat(%) 08/07/2014 3:19:00 PM 158 mmHg 90 mmHg [...] F 198 lbs 66 in 31.9577 kg/m 2.05 m2 12/28/2013 3:54:00 PM 134 mmHg 82 mmHg 64 bpm 98 F 192 lbs 66 in 30.99 kg/m2 2.0138 m 10/17/2013 1:56:00 PM 156 mmHg 96 mmHg 83 bpm 98.4 F 187.25 lbs 66 in 30.2226 kg/m 1.99 m2 09/21/2013 8:51:00 AM 124 mmHg 66 mmHg 86 bpm 18 rpm 98.1 F 187.125 lbs 66 in 30.20 kg/m2 1.9881 m 99 % 03/02/2013 2:43:00 PM [...] Reviewed 06/13/2014 4:18 PM URINE TEST Reviewed 08/07/2014 3:55 PM URINALYSIS AUTO W/O [...] 3:21PM Vaginal discharge Aug 07 2014 3:21PM Payers Insurance Name Company Name Plan Name Plan Number Policy Number Policy Group Number Start Date Bcbs Bcbs [facility] [id number] N/A Benefit [employer] [id number] Tuesday, 2012 Wppa Wppa [id number] N/A Wppa Wppa INVALID [id number] N/A [facility] [id number] February [facility] Occupational Medicine [id number] N/A History of Encounters Visit Date Visit Type Provider 08/07/2014 Office visit Nicole Ocampo DAYCARE WORKER 06/13/2014 Office visit Nicole Ocampo DAYCARE WORKER 05/05/2014 Office visit Nara Hdez DAYCARE WORKER 03/22/2014 Office visit Valeria Mohamud MD 02/27/2014 Office visit Nicole Ocampo DAYCARE WORKER 02/13/2014 Office visit Valeria Mohamud MD 02/07/2014 Hospital Valeria Mohamud MD 01/25/2014 Surgery Valeria Mohamud MD 01/25/2014 Nurse visit Kiley De Santiago CMA 12/28/2013 Office visit Valeria Mohamud MD 11/09/2013 Nurse visit Nicole Ocampo DAYCARE WORKER 10/17/2013 Office visit Valeria Mohamud MD 09/21/2013 Office visit Nicole Ocampo DAYCARE WORKER 08/24/2013 Nurse visit Nicole Ocampo DAYCARE WORKER 06/08/2013 Nurse visit Nicole Ocampo DAYCARE WORKER 03/23/2013 Nurse visit Nicole Ocampo DAYCARE WORKER 03/02/2013 Office visit Nicole Ocampo DAYCARE WORKER 03/23/2012 Office visit Nara Hdez DAYCARE WORKER 02/13/2012 Office visit Sirisha Franco MD 02/12/2011 Office visit Sirisha Franco MD 01/31/2009 Office visit Sirisha Franco MD
--- OUTSIDE RECORDS SUMMARY | 2018-01-04 11:38 | XMS REPORT ---
Author Author Nicole Ocampo Organization [facility] Address [address] [place], [place] [id number] Care Team Providers Care Career Development Counselor Name Role Phone Nicole Ocampo PCP Unavailable [...] 03/02/2013 12:00 AM Decadron, Per 1 Mg [facility]# [id number] Reviewed 03/02/2013 12:00 AM Depo-Medrol, Per 80 Mg [facility]#[id number] Reviewed 03/23/2013 12:00 AM THER/PROPH/DIAG INJ SC/IM [...] 02/27/2014 12:00 AM Decadron, Per 1 Mg [facility]# [id number] Reviewed 02/27/2014 12:00 AM Depo-Medrol, Per 80 Mg [facility]#[id number] Reviewed 03/22/2014 12:00 AM SPECIMEN HANDLING OFFICE-LAB [...] Group Number Start Date [employer]BS [employer] [place] [id number] Friday, 2015 [facility] [id number] February [facility] Occupational Medicine [id number] N/A [employer] [place] [id number] N/A Wppa Wppa [id number] N/A Wppa Wppa INVALID [id number] N/A Benef[employer] [id number] Tuesday, January 10, 2012 History of Encounters Visit Date Visit Type Provider 04/11/2015 Office visit Nicole Ocampo APRN 09/07/2014 Office visit Nicole Ocampo APRN 08/07/2014 Office visit Nicole Ocampo APRN 06/13/2014 Office visit Nicole Ocampo PRESSURE STEAMER TENDER 05/05/2014 Office visit Nara Hdez APRN 03/22/2014 Office visit Valeria Mohamud MD 02/27/2014 Office visit 02/27/2014 Office visit Nicole Ocampo APRN 02/13/2014 Office visit Valeria Mohamud MD 02/07/2014 Hospital Valeria Mohamud MD 01/25/2014 Nurse visit Kiley De Santiago CMA 01/25/2014 Surgery Valeria Mohamud MD 12/28/2013 Office visit Valeria Mohamud MD 11/09/2013 Nurse visit Nicole Ocampo APRN 10/17/2013 Office visit Valeria Mohamud MD 09/21/2013 Office visit Nicole Ocampo APRN 08/24/2013 Nurse visit Nicole Ocampo APRN 06/08/2013 Nurse visit Nicole Ocampo APRN 03/23/2013 Nurse visit Nicole Ocampo APRN 03/02/2013 Office visit Nicole Ocampo APRN 03/23/2012 Office visit Nara Hdez APRN 02/13/2012 Office visit Sirisha Franco MD 02/12/2011 Office visit Sirisha Franco MD 01/31/2009 Office visit Sirisha Franco MD
--- OUTSIDE RECORDS SUMMARY | 2018-01-04 11:38 | XMS REPORT ---
Author Author Nicole Ocampo Organization [facility] Address [address] [place], [place] [id number] Care Team Providers Care Cribber Name Role Phone Nicole Ocampo PCP Unavailable [...] 03/02/2013 12:00 AM Decadron, Per 1 Mg [facility]# [id number] Reviewed 03/02/2013 12:00 AM Depo-Medrol, Per 80 Mg [facility]#[id number] Reviewed 03/23/2013 12:00 AM THER/PROPH/DIAG INJ SC/IM [...] 02/27/2014 12:00 AM Decadron, Per 1 Mg [facility]# [id number] Reviewed 02/27/2014 12:00 AM Depo-Medrol, Per 80 Mg [facility]#[id number] Reviewed 03/22/2014 12:00 AM SPECIMEN HANDLING OFFICE-LAB [...] Group Number Start Date [employer]BS [employer] [place] [id number] Friday, 2015 [facility] [id number] February [facility] Occupational Medicine [id number] N/A [employer] [place] [id number] N/A Wppa Wppa [id number] N/A Wppa Wppa INVALID [id number] N/A Benefit [employer] [id number] Tuesday, January 10, 2012 History of Encounters Visit Date Visit Type Provider 04/11/2015 Office visit Nicole Ocampo OUTCOMES SPECIALIST 09/07/2014 Office visit Nicole Ocampo OUTCOMES SPECIALIST 08/07/2014 Office visit Nicole Ocampo OUTCOMES SPECIALIST 06/13/2014 Office visit Nicole Ocampo OUTCOMES SPECIALIST 05/05/2014 Office visit Nara Hdez OUTCOMES SPECIALIST 03/22/2014 Office visit Valeria Mohamud MD 02/27/2014 Office visit 02/27/2014 Office visit Nicole Ocampo OUTCOMES SPECIALIST 02/13/2014 Office visit Valeria Mohamud MD 02/07/2014 Hospital Valeria Mohamud MD 01/25/2014 Nurse visit Kiley De Santiago CMA 01/25/2014 Surgery Valeria Mohamud MD 12/28/2013 Office visit Valeria Mohamud MD 11/09/2013 Nurse visit Nicole Ocampo OUTCOMES SPECIALIST 10/17/2013 Office visit Valeria Mohamud MD 09/21/2013 Office visit Nicole Ocampo OUTCOMES SPECIALIST 08/24/2013 Nurse visit Nicole Ocampo OUTCOMES SPECIALIST 06/08/2013 Nurse visit Nicole Ocampo OUTCOMES SPECIALIST 03/23/2013 Nurse visit Nicole Ocampo OUTCOMES SPECIALIST 03/02/2013 Office visit Nicole Ocampo APRN 03/23/2012 Office visit Nara Hdez OUTCOMES SPECIALIST 02/13/2012 Office visit Sirisha Franco MD 02/12/2011 Office visit Sirisha Franco MD 01/31/2009 Office visit Sirisha Franco MD
--- OUTSIDE RECORDS SUMMARY | 2018-01-04 11:39 | XMS REPORT | Continuity of Care Document ---
Author Author [facility] Organization [facility] Address Unknown Phone Unavailable Allergies Active Description Code Type Severity Reaction Onset Reported/Identified Relationship to Patient Clinical Status Yes NKDA N/A N/A Yes No Allergy Information Available [id number] Drug Allergy Unknown N/A 2016 Medications Medication Packaging Start Date Stop Date Route Dosage Sig OMEPRAZOLE 03/21/2016 ORAL 30 daily LEVOTHYROXINE SODIUM 03/21/2016 ORAL 30 daily CLOMIPHENE CITRATE 07/31/2016 ORAL daily AUGMENTIN 07/31/2016 ORAL 14 twice daily SINGULAIR 11/24/2016 ORAL 30 daily PROAIR HFA 11/24/2016 Inhalation 1 four times each day BENZONATATE 11/24/2016 ORAL 30 three times daily ALBUTEROL 11/24/2016 1 QID PRN ZITHROMAX 11/26/2016 ORAL 6 as dir ZITHROMAX 12/05/2016 ORAL 6 as dir PREDNISONE 12/05/2016 ORAL 15 three times daily MONTELUKAST SODIUM 02/03/2017 ORAL 30 daily FLONASE 02/03/2017 1 QDAY CLOMIPHENE CITRATE 02/03/2017 ORAL daily BENZONATATE 02/03/2017 ORAL 30 three times daily AMOXICILLIN 02/03/2017 Oral 14 twice each day Problems Date Dx Coded Attending Type Code Diagnosis Diagnosed By 01/28/2017 LESVIA GHOTRA MD Ot 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 Results Test Result Range Urine protein/creatinine mass ratio - 12/16/17 11:39 Urine protein measurement (mass/volume) 15 mg/dL 6-12 Urine creatinine measurement (mass/volume) 87 mg/dL 30- 125 Urine protein/creatinine mass ratio 0.17 NRG Urine protein/creatinine mass ratio - 12/30/17 11:35 Urine protein measurement (mass/volume) 14 mg/dL 6-12 Urine creatinine measurement (mass/volume) 96 mg/dL 30- 125 Urine protein/creatinine mass ratio 0.15 NRG Encounters ACCT No. Visit Date/Time Discharge Status Pt. Type Provider Facility Loc./Unit Complaint [id number] 09/25/2016 10:51:13 09/25/2016 23:59:59 CLS Outpatient WalkerNicole [id number] 09/11/2015 12:41:50 09/11/2015 23:59:59 CLS Outpatient Walker, Nicole [id number] 04/11/2015 10:19:49 04/11/2015 23:59:59 CLS Outpatient Walker, Nicole [id number] 09/18/2014 22:26:51 09/18/2014 23:59:59 CLS Outpatient Walker, Nicole [id number] 09/18/2014 22:05:44 09/18/2014 23:59:59 CLS Outpatient Walker, Nicole [id number] 06/13/2014 16:12:45 06/13/2014 23:59:59 CLS Outpatient Walker, Nicole [id number] 05/05/2014 16:50:42 05/05/2014 23:59:59 CLS Outpatient Nara Hdez [id number] 03/22/2014 15:10:03 03/22/2014 23:59:59 CLS Outpatient Valeria Mohamud [id number] 02/27/2014 15:37:42 02/27/2014 23:59:59 CLS Outpatient Walker, Nicole [id number] 02/13/2014 10:47:02 02/13/2014 23:59:59 CLS Outpatient Valeria Mohamud [id number] 02/07/2014 11:36:38 02/07/2014 23:59:59 CLS Outpatient Valeria Mohamud [id number] 01/25/2014 15:55:13 01/25/2014 23:59:59 CLS Outpatient Jerson Hinojosa [id number] 01/25/2014 15:13:29 01/25/2014 23:59:59 CLS Outpatient Vlaeria Mohamud [id number] 12/28/2013 16:41:42 12/28/2013 23:59:59 CLS Outpatient Valeria Mohamud [id number] 11/09/2013 17:04:51 11/09/2013 23:59:59 CLS Outpatient Nicole Ocampo [id number] 10/17/2013 14:39:56 10/17/2013 23:59:59 CLS Outpatient Valeria Mohamud [id number] 09/21/2013 09:45:15 09/21/2013 23:59:59 CLS Outpatient Terrence, Nicole [id number] 08/24/2013 17:30:12 08/24/2013 23:59:59 CLS Outpatient Walker, Nicole [id number] 06/08/2013 17:18:37 06/08/2013 23:59:59 CLS Outpatient Walker, Nicole [id number] 03/23/2013 16:39:08 03/23/2013 23:59:59 CLS Outpatient Walker, Nicole [id number] 03/02/2013 15:34:58 03/02/2013 23:59:59 CLS Outpatient Walker, Nicole [id number] 03/21/2016 12:03:00 Document Registration [id number] 12/30/2017 12:00:00 12/30/2017 23:59:59 CLS Outpatient LESVIA GHOTRA MD [facility] [id number] 12/16/2017 11:39:00 12/16/2017 23:59:59 CLS Outpatient LESVIA GHOTRA MD [facility] LABT [id number] 01/05/2017 11:31:00 01/05/2017 23:59:59 CLS Outpatient LESVIA GHOTRA MD [facility] RAD DYSMENORRHEA [id number] 01/12/2018 07:00:00 PEN Preadmit LESVIA GHOTRA MD [facility] [id number] 01/23/2017 15:20:00 01/23/2017 23:59:[address] [facility]
[2018-01-04] MEDS ORDERED: D5 LR IV SOLUTION 1,000 ML IV ONE ×2 (11:47→19:46)
[2018-01-04] MEDS ORDERED: AMPICILLIN FOR IV USE 2,000 MG in NS (IVPB) 50 ML IV SCH (12:04)
[2018-01-04] MEDS ORDERED: OXYTOCIN/NORMAL SALINE 500 ML IV SCH (12:04)
[2018-01-04] MEDS: D5 LR IV SOLUTION 1,000 ML IV SCH ×2 (12:05→21:07)
[2018-01-04] MEDS ORDERED: MINERAL OIL CONCENTRATE 99.9% 15 ML UDC TOP PRN (12:15)
[2018-01-04 12:33] LABS: BASOPHILS % (AUTO) 0 % (0-10); EOSINOPHILS # (AUTO) 0.1 10^3/uL (0.0-0.3); EOSINOPHILS % (AUTO) 1 % (0-10); HEMATOCRIT 39 % (35-52); HEMOGLOBIN 13.3 G/DL (11.5-16.0); LYMPHOCYTES # (AUTO) 1.6 X 10^3 (1.0-4.0); LYMPHOCYTES % (AUTO) 21 % (12-44); MEAN CORPUSCULAR HEMOGLOBIN 31 PG (25-34); MEAN CORPUSCULAR HGB CONC 34 G/DL (32-36); MEAN CORPUSCULAR VOLUME 89 FL (80-99); MEAN PLATELET VOLUME 11.5 FL (7.4-10.4); MONOCYTES # (AUTO) 0.4 X 10^3 (0.0-1.0); MONOCYTES % (AUTO) 6 % (0-12); NEUTROPHILS # (AUTO) 5.4 X 10^3 (1.8-7.8); NEUTROPHILS % (AUTO) 72 % (42-75); PLATELET COUNT 322 10^3/uL (130-400); RED BLOOD COUNT 4.36 10^6/uL (4.35-5.85); RED CELL DISTRIBUTION WIDTH 13.6 % (10.0-14.5); WHITE BLOOD COUNT 7.4 10^3/uL (4.3-11.0)
[2018-01-04 12:35] LABS: BILIRUBIN,URINE NEGATIVE (NEGATIVE); CLARITY,URINE CLEAR; COLOR,URINE YELLOW; GLUCOSE, URINE (UA) NEGATIVE (NEGATIVE); KETONES,URINE NEGATIVE (NEGATIVE); LEUKOCYTE ESTERASE ,URINE 1+ (NEGATIVE); NITRITE,URINE NEGATIVE (NEGATIVE); PH,URINE 6.5 (5-9); PROTEIN,URINE NEGATIVE (NEGATIVE); UROBILINOGEN,URINE NORMAL (NORMAL)
[2018-01-04 12:47] LABS: BACTERIA,URINE TRACE /HPF
[2018-01-04] MEDS ORDERED: PREN-37 PO (12:50)
[2018-01-04 12:52] LABS: ALANINE AMINOTRANSFERASE 15 U/L (0-55); ALBUMIN 3.5 GM/DL (3.2-4.5); ALKALINE PHOSPHATASE 381 U/L (40-136); BILIRUBIN,TOTAL 0.3 MG/DL (0.1-1.0); BUN/CREATININE RATIO 12; CALCIUM 9.3 MG/DL (8.5-10.1); CARBON DIOXIDE 16 MMOL/L (21-32); CHLORIDE 108 MMOL/L (98-107); CREATININE SERUM 0.58 MG/DL (0.60-1.30); GFR ESTIMATED > 60; GLUCOSE 74 MG/DL (70-105); POTASSIUM 3.8 MMOL/L (3.6-5.0); SODIUM 137 MMOL/L (135-145); TOTAL PROTEIN 6.9 GM/DL (6.4-8.2)
--- NOTE | 2018-01-04 13:57 | History & Physical ---
History and Physical Date Seen by Provider: Jan 04, 2018 Time Seen by Provider: 13:52 This patient is a 26-year-old 1 white female with an EDC of putting her now at 38 weeks gestation she presented with complaint of elevated blood pressure to the 160s over high 90s. She denies rupture membranes or bleeding. Her GBS culture done at 35 weeks gestation was positive. She has been followed in clinic for elevated blood pressures that have been progressively increasing into the third trimester. Blood pressure on admission was in the 170s over 100 range her blood pressures have improved somewhat now at bed rest. Patient has been admitted for management including delivery Allergies are none Medications are vitamins Medical social and surgical histories are per the antepartum record HEENT exam is normal Neck supple no lymphadenopathy no thyromegaly Abdomen is gravid soft nontender nondistended Extremities show no clubbing or cyanosis. There is no Homans sign. Pelvic exam shows a cervix almost to two cm dilated over 50 percent effaced, vertex presentation at the 0 to -1 station. The cervix is soft and midplane. Sequential Michaels score of 8 Laboratory Tests 01/04/18 12:00 Urine protein creatinine ratio was 0.19 monitor shows contractions every 2-3 minutes. There is normal heart rate pattern. Assessment and plan term 38 weeks gestation with PIH at least and likely with developing preeclampsia. Patient has been admitted and her contractions will be augmented with Pitocin. With a close attention to the blood pressures. We anticipate a vaginal delivery but patient understands that a could be indicated for or maternal indications 38 weeks with PIH and early labor Allergies and Home Medications Allergies Coded Allergies: No Allergy Information Available (Unverified , 01/05/17) Home Medications Vit/Iron Fumarate/FA 1 Each Tablet, 1 EACH PO DAILY, (Reported) Patient Home Medication List Home Medication List Reviewed: Yes Clinical Quality Measures DVT/VTE Risk/Contraindication: Risk Factor Score Per Nursin RFS Level Per Nursing on Admit: 1=Low/No VTE PPX LESVIA GHOTRA MD Jan 04, 2018 1:57 pm
[2018-01-04] MEDS ORDERED: AMPICILLIN FOR IV USE 1,000 MG in NS (IVPB) 50 ML IV SCH (16:15)
[2018-01-04] MEDS ORDERED: fentaNYL INJECTION 100 MCG/2 ML AMP ONE ×3 (16:35→20:10)
[2018-01-04] MEDS ORDERED: SUFENTA 0.6MCG/ML BUPIVA 0.125 100 ML ONE (16:35)
[2018-01-04] MEDS ORDERED: BUPIVACAINE 0.25% 30 ML (SENSORCAINE) VIAL ONE (17:30)
[2018-01-04] MEDS ORDERED: LACTATED RINGERS 1,000 ML IV ONE (18:38)
[2018-01-04] MEDS ORDERED: EPIDURAL (SUFENTA 0.6MCG/ML BUPIVA 0.125%) 100 ML BAG EPI PRN (18:45)
[2018-01-04] MEDS ORDERED: METOCLOPRAMIDE INJ 10 MG/2 ML (REGLAN) IV PRN (18:45)
[2018-01-04] MEDS ORDERED: ONDANSETRON 4 MG/2 ML (SDV) Z0FRAN IV PRN (18:45)
[2018-01-04] MEDS ORDERED: NALOXONE 0.4 MG/ML 1 ML (NARCAN) VIAL IV PRN ×2 (18:45)
[2018-01-04] MEDS ORDERED: diphenhydrAMINE 50 MG/ML INJ (BENADRYL) IV PRN (18:45)
[2018-01-04] MEDS ORDERED: ceFAZolin 2 GM IV Premixed 50 ML IV ONE (19:30)
[2018-01-04] MEDS ORDERED: metroNIDAZOLE 500MG/100ML IVPB 100 ML IV ONE ×2 (19:30→19:45)
[2018-01-04] MEDS ORDERED: LACTATED RINGERS 1,000 ML IV PRN (19:32)
[2018-01-04] MEDS ORDERED: ceFAZolin 2 GM IV Premixed 50 ML ONE (19:34)
[2018-01-04] MEDS ORDERED: metroNIDAZOLE 500MG/100ML IVPB 100 ML ONE (19:34)
[2018-01-04] MEDS ORDERED: ONDANSETRON 4 MG/2 ML (SDV) Z0FRAN IVP PRN (19:45)
[2018-01-04] MEDS ORDERED: METOCLOPRAMIDE INJ 10 MG/2 ML (REGLAN) IV ONE (19:45)
[2018-01-04] MEDS ORDERED: PROMETHAZINE INJ 25 MG/ML (PHENERGAN) AMP IM PRN (19:45)
[2018-01-04] MEDS ORDERED: ceFAZolin INJECTION 2,000 MG in NS (IVPB) 50 ML IV ONE (19:45)
[2018-01-04] MEDS ORDERED: FAMOTIDINE 20MG/2ML IV (PEPCID) IV ONE (19:45)
[2018-01-04] MEDS ORDERED: CITRIC ACID/SOB CIT (BICITRA) 30 ML UDC PO ONE (19:45)
[2018-01-04] MEDS ORDERED: MEPERIDINE (DEMEROL) INJ 100 MG/ML IM PRN (19:45)
[2018-01-04] MEDS ORDERED: MEASLES,MUMPS,RUBELLA 1 EA INJ SC ONE (19:45)
[2018-01-04] MEDS ORDERED: TETANUS,DIPTH,PERTUSS P/F (BOOSTRIX) 0.5 ML VIAL IM ONE (19:45)
[2018-01-04] MEDS ORDERED: LIDOCAINE PF 2% 5 ML (XYLOCAINE) VIAL ONE ×3 (19:54→20:50)
[2018-01-04] MEDS ORDERED: ONDANSETRON 4 MG/2 ML (SDV) Z0FRAN ONE (19:54)
[2018-01-04] MEDS ORDERED: DEXAMETHASONE 10 MG/ML (DECADRON) 1 ML VIAL ONE (19:54)
[2018-01-04] MEDS ORDERED: KETAMINE HCL 100 MG/ML 5 ML VIAL ONE (20:19)
[2018-01-04] MEDS: DOCUSATE SODIUM 100 MG (COLACE) CAP PO SCH (21:00)
[2018-01-04] MEDS: CATHETER FLUSH 10 ML SYR IV SCH ×2 (21:12→22:00)
[2018-01-04] MEDS: OXYTOCIN/NORMAL SALINE 500 ML IV SCH (21:29)
[2018-01-04] MEDS: KETOROLAC 30 MG/ML VIAL IVP SCH (21:33)
[2018-01-05] VITALS: BP 128/69
[2018-01-05] MEDS: OXYTOCIN/NORMAL SALINE 500 ML IV SCH (01:10)
[2018-01-05] MEDS: oxyCODONE/APAP 10/325MG (PERCOCET 10) TABLET PO PRN ×3 (01:12→21:57)
[2018-01-05 04:05] VITALS: BP 134/77
[2018-01-05] MEDS: CATHETER FLUSH 10 ML SYR IV SCH (04:05)
[2018-01-05] MEDS: KETOROLAC 30 MG/ML VIAL IVP SCH ×3 (04:05→23:33)
--- NOTE | 2018-01-05 06:02 | OPERATIVE REPORT ---
DATE OF SERVICE: 01/04/2018 PREOPERATIVE DIAGNOSIS: Term at 38 weeks gestation in labor with nonreassuring heart rate pattern. INDICATION: The patient was laboring under the augmentation of Pitocin due to PIH. heart rate pattern had initially been reactive and reassuring; however, eventually became relatively flat, failed to show any sign of acceleration with scalp stimulation. There were several decels, some of which were early and some of which were late, none were repetitive. However, with the patient being only 3 cm and with a relatively prolonged section of relatively flat strips and presenting part being the vertex at a very high station poorly applied to the cervix in spite of rupture of membranes and augmentation with Pitocin. Decision was made to proceed with . OPERATIVE DESCRIPTION: With the patient in the supine position under satisfactory epidural analgesia, the patient was prepped and draped in usual fashion for abdominal surgery. Conley catheter had been placed in the urinary bladder during labor that was left to dependent drainage. A Pfannenstiel incision made through skin with scalpel. The patient's abdomen entered in the usual manner. Bladder retractor placed in position. Clean scalpel used to make a 4 cm hysterotomy incision transversely across lower uterine segment that was extended by blunt dissection as well. A vigorous viable female infant was delivered via the uterine incision and the had Apgars of 7 and 9 at 1 and 5 minutes respectively, weight of 8 pounds. Cord blood pH of 7.3 and a time of 2026. The was bulb suctioned on delivery of the head and again on completion of delivery. The umbilical cord was doubly clamped and cut and the passed to the pediatric nurse in attendance for delivery. Cord bloods were obtained. Placenta delivered spontaneously Rodriguez. It was normal with a 3-vessel cord. The uterus was exteriorized and to wipe clean with a wet laparotomy sponge. Uterine incision then closed with a running locked suture of 2-0 Vicryl. Hemostasis was satisfactory. The uterus was returned to the abdominal cavity. All blood clot and debris removed from the abdominal cavity. With sponge, needle counts correct and hemostasis assured, the anterior parietal peritoneum was closed with running suture of 2-0 Vicryl. Rectus muscles were closed with that suture as well. The rectus fascia was closed with 2-0 Vicryl, subcutaneous tissue was closed with 2-0 Vicryl and the skin was stapled. Sponge and needle counts were correct on completion of the procedure. Estimated blood loss for procedure was around 500 mL. The patient tolerated the procedure well and was taken to the recovery room in stable condition. The baby had remained in the care of the pediatric nurse and was with the patient at the time the was completed. Job ID: [id number] DocumentID: [id number] Dictated Date: 01/04/2018 20:52:58 Seamless Tube Roller Date: 01/05/2018 06:01:40 Dictated By: LESVIA GHOTRA MD
--- NOTE | 2018-01-05 07:41 | Anesthesia-Regional Post-Op ---
Regional Patient Condition Mental Status: Alert, Oriented x3 Circulation: Same as Pre-Op Headache: Absent Sensation: Full Recovery Motor Block: Absent Post Op Complications Complications None Follow Up Care/Instructions Patient Instructions None needed. Anesthesia/Patient Condition Patient is doing well, no complaints, stable vital signs, no apparent adverse anesthesia problems. No complications reported per nursing. GLADYS WADDELL CRNA Jan 05, 2018 07:41
[2018-01-05 08:00] VITALS: BP 128/70
--- NOTE | 2018-01-05 08:00 | Progress Note-Standard ---
Standard Progress Note Progress Notes/Assess & Plan Date Seen by a Provider: Jan 05, 2018 Time Seen by a Provider: 07:59 Progress/Assessment & Plan Patient is without complaint. She is ambulating, voiding, tolerating oral intake well, and has good pain control. Vital Signs 01/05/18 04:05 Temp 98.1 Pulse 69 Resp 18 B/P (MAP) 134/77 (96) Pulse Ox 96 O2 Delivery Room Air Vital signs are stable. Patient is afebrile. The abdomen is benign. Extremities show no clubbing or cyanosis. There is no Homans sign. There is some pretibial pitting pitting that is normal. Assessment and plan postoperative day number 1 status post primary delivery doing well. Plan is for routine convalescence care. Blood pressures are normalizing. LESVIA GHOTRA MD Jan 05, 2018 08:00
[2018-01-05] MEDS ORDERED: DOCU100C37 PO (08:02)
[2018-01-05] MEDS ORDERED: OXYC1TAB12 PO (08:02)
[2018-01-05] MEDS ORDERED: IBUP-1780 PO (08:02)
--- NOTE | 2018-01-05 08:05 | Discharge Instructions ---
Discharge Instructions Discharge Medications New, Converted or Re-Newed RX: RX on Chart Patient Instructions Patient Instructions: As directed Return to The Hospital For: As directed Activity & Diet Discharge Diet: No Restrictions Activity as Tolerated: No Orders-Post D/C & Referrals Follow Up Appt: RTC 1 week for incision check. Call to make follow up appt. for patient in 4 weeks. Wound Care: Remove chris, apply benzoin and steri strips. Activity Per routine post instructions. Diet as tolerated Patient may shower or tub bathe as desired. Continue home meds LESVIA GHOTRA MD Jan 05, 2018 08:04
[2018-01-05] MEDS: DOCUSATE SODIUM 100 MG (COLACE) CAP PO SCH ×2 (10:45→21:54)
[2018-01-05 13:00] VITALS: BP 153/75
[2018-01-05 17:00] VITALS: BP 142/75
[2018-01-05] MEDS: IBUPROFEN 800 MG (MOTRIN) TAB PO SCH (17:10)
[2018-01-06 00:01] VITALS: BP 154/98
[2018-01-06] MEDS: IBUPROFEN 800 MG (MOTRIN) TAB PO SCH ×3 (00:01→12:46)
[2018-01-06 06:46] VITALS: BP 149/85
[2018-01-06] MEDS ORDERED: MEASLES,MUMPS,RUBELLA 1 EA INJ ONE (08:14)
--- NOTE | 2018-01-06 08:20 | Progress Note-Standard ---
Standard Progress Note Progress Notes/Assess & Plan Date Seen by a Provider: Jan 06, 2018 Time Seen by a Provider: 08:18 Progress/Assessment & Plan Patient is without complaint. She is ambulating, voiding, tolerating oral intake well, and has good pain control. Vital Signs 01/05/18 04:05 Temp 98.1 Pulse 69 Resp 18 B/P (MAP) 134/77 (96) Pulse Ox 96 O2 Delivery Room Air Vital signs are stable. Patient is afebrile. The abdomen is benign. Extremities show no clubbing or cyanosis. There is no Homans sign. There is some pretibial pitting pitting that is normal. Assessment and plan postoperative day number 1 status post primary delivery doing well. Plan is for routine convalescence care. Blood pressures are normalizing. January 06, 2018 This patient is without complaint. She is ambulating, voiding, tolerating oral intake well, has good pain control, and is requesting discharge home. Vital Signs 01/06/18 01/06/18 00:01 06:46 Temp 98.3 Pulse 76 Resp 16 B/P (MAP) 149/85 (106) Pulse Ox 96 O2 Delivery Room Air Vital signs are stable. Patient is afebrile. The abdomen is benign. The surgical incision is clean dry and intact. Fundus is firm below the umbilicus and nontender. Extremities no clubbing cyanosis. There is no Homans sign. There is some notable pretibial pitting edema but that is normal for her state. Assessment and plan postoperative day number 2 status post primary delivery at 38 weeks gestation doing well. Plans for discharge home with follow -up in clinic Final Diagnosis 38 week primary delivery LESVIA GHOTRA MD Jan 06, 2018 8:20 am
[2018-01-06] MEDS: oxyCODONE/APAP 10/325MG (PERCOCET 10) TABLET PO PRN ×2 (08:53→15:24)
[2018-01-06] MEDS: DOCUSATE SODIUM 100 MG (COLACE) CAP PO SCH (08:53)
[2018-01-06 12:00] VITALS: BP 130/77
[2018-01-06 16:30] VITALS: BP 130/77
== END 2018-01-06 16:30 | disposition home or self-care (01) | DRG 788 ==
LOC: LDRP 11:29
PROVIDERS: ADMIT Obstetrics & Gynecology; ATTEND Obstetrics & Gynecology
PROC: 10D00Z1 Extraction of Products of Conception, Low, Open Approach (ICD-10-PCS; principal; 2018-01-04 20:04)
DX: O13.4 Gestational [pregnancy-induced] hypertension without significant proteinuria, complicating childbirth (principal); O14.94 Unspecified pre-eclampsia, complicating childbirth; O76 Abnormality in fetal heart rate and rhythm complicating labor and delivery; O99.824 Streptococcus B carrier state complicating childbirth; Z3A.38 38 weeks gestation of pregnancy; Z37.0 Single live birth
CPT/HCPCS: 36415; 80053; 81000; 82570; 83615; 84156; 84550; 85025; 86850; 86900; 86901; 90707; 94664